=== PATIENT | male | born 1965 | race African-American/Black ===

== ENCOUNTER 2020-06-02 02:40 | Inpatient (IN) ==
[2020-06-02] MEDS ORDERED: GLUCAGON 1 MG VIAL IM PRN (05:59)
[2020-06-02] MEDS ORDERED: ONDANSETRON 4 MG/2 ML VIAL IV PRN (05:59)
[2020-06-02] MEDS ORDERED: DEXTROSE 50% 25 GM/50 ML VIAL IV PRN (05:59)
[2020-06-02] MEDS: ACETAMINOPHEN 325 MG TABLET PO PRN ×3 (06:19→21:01)
[2020-06-02] MEDS: PIPERACILLIN/TAZOBACTAM 3,375 MG in SODIUM CHLORIDE 0.9% 100 ML IV SCH ×3 (06:52→22:26)
[2020-06-02] MEDS: SODIUM CHLORIDE 0.9% 1,000 ML IV SCH ×3 (06:52→22:26)
[2020-06-02] MEDS: MORPHINE 4 MG/1 ML VIAL IV PRN ×3 (07:29→17:45)
[2020-06-02 07:58] LABS: Basophils % 0.4 % (0.0-0.8); Eosinophils % 0.1 % (0.00-10.9); Hematocrit 36.2 VOL% (42.0-52.0); Hemoglobin 12.4 GM/DL (14.0-18.0); Immature Granulocytes % 0.7 %; Immature Granulocytes Absolute 0.05 #; Lymphocytes # 1.1 10*3/uL (1.4-4.0); Lymphocytes % 15.7 % (21.2-54.2); Mean Corpuscular HGB Conc 34.3 GM/DL (32-36); Mean Corpuscular Volume 84.2 FL (87-102); Mean Platelet Volume 11.6 FL (9.6-12.0); Monocytes % 15.4 % (1.7-12.7); Neutrophils % 67.7 % (38.7-73.9); Platelet Count 156 T/CUMM (130-400); Red Cell Distribution Width 14.1 % (9.3-17.3); White Blood Count 6.8 T/CUMM (4-12)
[2020-06-02 08:28] LABS: Band Neutrophils 7 % (0-10); Eosinophils 2 % (0-10); Lymphocytes 11 % (20-55); Segmented Neutrophils 66 % (50-85); Total Cells Counted 100
[2020-06-02 08:29] LABS: Platelet Estimate Adequate; Polychromasia Slight; Target Cells Slight
[2020-06-02 08:38] LABS: Albumin 2.3 G/DL (3.4-5.0); Calcium 8.6 MG/DL (8.5-10.1); Osmolality,Calculated 256.2 MOS/KG (273-304); Potassium 3.5 MMOL/L (3.5-5.1); Total Protein 6.5 G/DL (6.4-8.2)
[2020-06-02 08:42] LABS: Bilirubin,Total 13.4 MG/DL (0.2-1.0)
[2020-06-02] MEDS ORDERED: NICOTINE 21 MG/24 HR PATCH TRANSDERM PRN (09:34)
[2020-06-02 10:34] LABS: INR 1.1; PT Patient Result 11.4 SECS (9.8-11.9); Partial Thromboplastin Time 26.2 SECS (23.9-33.8)
[2020-06-02 11:05] LABS: Hepatitis B Core IgM Quant < 0.05 Index; Hepatitis B Surface Ag Quant < 0.10 Index; Hepatitis B Surface Ag Result Non-Reactive (NonReactive); Hepatitis C Virus Ab Quant 0.07 Index; Hepatitis C Virus Ab Result Non-Reactive (NonReactive)
[2020-06-03] MEDS ORDERED: IBUPROFEN 600 MG TABLET PO PRN (00:26)
[2020-06-03] MEDS: SODIUM CHLORIDE 0.9% 1,000 ML IV SCH ×3 (04:31→18:08)
[2020-06-03] MEDS: PIPERACILLIN/TAZOBACTAM 3,375 MG in SODIUM CHLORIDE 0.9% 100 ML IV SCH ×3 (06:00→22:48)
[2020-06-03 06:16] LABS: Basophils % 0.3 % (0.0-0.8); Eosinophils % 0.2 % (0.00-10.9); Hematocrit 32.7 VOL% (42.0-52.0); Hemoglobin 11.5 GM/DL (14.0-18.0); Immature Granulocytes % 1.1 %; Immature Granulocytes Absolute 0.11 #; Lymphocytes # 1.7 10*3/uL (1.4-4.0); Lymphocytes % 16.3 % (21.2-54.2); Mean Corpuscular HGB Conc 35.2 GM/DL (32-36); Mean Platelet Volume 12.5 FL (9.6-12.0); Monocytes % 19.1 % (1.7-12.7); Platelet Count 160 T/CUMM (130-400); Red Blood Count 3.94 MC/CUMM (3.8-5.5); Red Cell Distribution Width 14.4 % (9.3-17.3); White Blood Count 10.1 T/CUMM (4-12)
[2020-06-03 06:43] LABS: Lymphocytes 18 % (20-55); Segmented Neutrophils 70 % (50-85); Total Cells Counted 100
[2020-06-03 06:44] LABS: Platelet Estimate Adequate; Target Cells Slight
[2020-06-03 06:51] LABS: Albumin 2.1 G/DL (3.4-5.0); Calcium 8.5 MG/DL (8.5-10.1); Osmolality,Calculated 265.4 MOS/KG (273-304); Potassium 3.6 MMOL/L (3.5-5.1); Total Protein 6.1 G/DL (6.4-8.2)
[2020-06-03 07:02] LABS: Bilirubin,Total 18.6 MG/DL (0.2-1.0)
[2020-06-03] MEDS: INSULIN REGULAR 100 UNIT/ML SUBCUT SCH ×4 (08:06→20:47)
[2020-06-03] MEDS: MORPHINE 4 MG/1 ML VIAL IV PRN ×2 (11:35→20:01)
[2020-06-03] MEDS: IBUPROFEN 400 MG TABLET PO PRN (22:49)
[2020-06-04] MEDS: SODIUM CHLORIDE 0.9% 1,000 ML IV SCH ×4 (00:34→23:35)
[2020-06-04] MEDS: ACETAMINOPHEN 325 MG TABLET PO PRN (00:59)
[2020-06-04] MEDS: MORPHINE 4 MG/1 ML VIAL IV PRN ×3 (03:43→18:27)
[2020-06-04 05:29] LABS: Basophils % 0.3 % (0.0-0.8); Eosinophils # 0.1 10*3/uL (0.0-0.87); Eosinophils % 0.9 % (0.00-10.9); Hematocrit 30.1 VOL% (42.0-52.0); Hemoglobin 10.5 GM/DL (14.0-18.0); Immature Granulocytes % 2.1 %; Immature Granulocytes Absolute 0.22 #; Lymphocytes # 2.1 10*3/uL (1.4-4.0); Lymphocytes % 19.9 % (21.2-54.2); Mean Corpuscular HGB Conc 34.9 GM/DL (32-36); Mean Corpuscular Volume 83.1 FL (87-102); Mean Platelet Volume 12.2 FL (9.6-12.0); Monocytes % 13.4 % (1.7-12.7); Neutrophils % 63.4 % (38.7-73.9); Platelet Count 199 T/CUMM (130-400); Red Blood Count 3.62 MC/CUMM (3.8-5.5); Red Cell Distribution Width 14.4 % (9.3-17.3); White Blood Count 10.5 T/CUMM (4-12)
[2020-06-04 05:49] LABS: Albumin 1.8 G/DL (3.4-5.0); Calcium 8.4 MG/DL (8.5-10.1); Osmolality,Calculated 265.2 MOS/KG (273-304); Potassium 3.2 MMOL/L (3.5-5.1); Total Protein 5.6 G/DL (6.4-8.2)
[2020-06-04 05:50] LABS: Bilirubin,Total 19.6 MG/DL (0.2-1.0)
[2020-06-04 05:51] LABS: INR 1.2; PT Patient Result 12.5 SECS (9.8-11.9); Partial Thromboplastin Time 29.8 SECS (23.9-33.8)
[2020-06-04 05:59] LABS: Band Neutrophils 2 % (0-10); Eosinophils 2 % (0-10); Hypochromasia 1+; Lymphocytes 18 % (20-55); Microcytosis 1+; Platelet Estimate Adequate; Segmented Neutrophils 66 % (50-85); Total Cells Counted 100
[2020-06-04] MEDS: PIPERACILLIN/TAZOBACTAM 3,375 MG in SODIUM CHLORIDE 0.9% 100 ML IV SCH ×2 (06:43→17:58)
[2020-06-04] MEDS: INSULIN REGULAR 100 UNIT/ML SUBCUT SCH ×4 (08:48→20:38)
[2020-06-04] MEDS: POTASSIUM CHLORIDE RIDER 10 MEQ in PREMIX 1 EACH IV PRN ×4 (09:12→22:45)
[2020-06-04] MEDS ORDERED: INDOMETHACIN SUPP 50 MG SUPP RECTAL ONE ×2 (10:51→14:00)
[2020-06-04] MEDS: LACTATED RINGERS 1,000 ML IV SCH ×2 (14:23→15:50)
[2020-06-04] MEDS ORDERED: fentaNYL 100 MCG/2 ML VIAL ONE (14:40)
[2020-06-04] MEDS ORDERED: ONDANSETRON 4 MG/2 ML VIAL ONE (14:45)
[2020-06-04] MEDS ORDERED: propofoL 200 MG/20 ML VIAL IV ONE (14:45)
[2020-06-04] MEDS ORDERED: DEXAMETHASONE 4 MG/1 ML VIAL ONE (14:45)
[2020-06-04] MEDS ORDERED: SUCCINYLCHOLINE 200 MG/10 ML VIAL ONE (14:45)
[2020-06-04] MEDS ORDERED: LIDOCAINE 2% 5 ML VIAL ONE (14:45)
[2020-06-04] MEDS ORDERED: ROCURONIUM 50 MG/5 ML VIAL IV ONE (15:21)
[2020-06-04] MEDS ORDERED: GLYCOPYRROLATE 0.4 MG/2 ML VIAL ONE ×2 (15:51)
[2020-06-04] MEDS ORDERED: NEOSTIGMINE 10 MG/10 ML VIAL ONE (15:51)
[2020-06-04] MEDS ORDERED: SEVOFLURANE 1 UNIT/15 MINUTE INH ONE (16:02)
[2020-06-05] MEDS: PIPERACILLIN/TAZOBACTAM 3,375 MG in SODIUM CHLORIDE 0.9% 100 ML IV SCH ×3 (01:06→17:01)
[2020-06-05] MEDS: MORPHINE 4 MG/1 ML VIAL IV PRN ×2 (05:14→18:33)
[2020-06-05] MEDS: SODIUM CHLORIDE 0.9% 1,000 ML IV SCH ×4 (06:04→23:10)
[2020-06-05 08:06] LABS: Basophils % 0.2 % (0.0-0.8); Hematocrit 29.8 VOL% (42.0-52.0); Hemoglobin 10.3 GM/DL (14.0-18.0); Immature Granulocytes % 1.6 %; Immature Granulocytes Absolute 0.21 #; Lymphocytes # 1.6 10*3/uL (1.4-4.0); Lymphocytes % 12.5 % (21.2-54.2); Mean Corpuscular HGB Conc 34.6 GM/DL (32-36); Mean Corpuscular Volume 84.4 FL (87-102); Mean Platelet Volume 11.9 FL (9.6-12.0); Monocytes % 3.9 % (1.7-12.7); Neutrophils % 81.8 % (38.7-73.9); Platelet Count 261 T/CUMM (130-400); Red Blood Count 3.53 MC/CUMM (3.8-5.5); Red Cell Distribution Width 14.8 % (9.3-17.3)
[2020-06-05 08:25] LABS: Albumin 1.7 G/DL (3.4-5.0); Calcium 7.9 MG/DL (8.5-10.1); Osmolality,Calculated 277.7 MOS/KG (273-304); Potassium 4.3 MMOL/L (3.5-5.1); Total Protein 5.9 G/DL (6.4-8.2)
[2020-06-05] MEDS: INSULIN REGULAR 100 UNIT/ML SUBCUT SCH ×4 (08:38→21:03)
[2020-06-05 09:04] LABS: Lymphocytes 15 % (20-55); Platelet Estimate Adequate; Segmented Neutrophils 79 % (50-85); Total Cells Counted 100
[2020-06-05 09:05] LABS: Microcytosis Slight
[2020-06-06] MEDS: MORPHINE 4 MG/1 ML VIAL IV PRN (01:20)
[2020-06-06] MEDS: PIPERACILLIN/TAZOBACTAM 3,375 MG in SODIUM CHLORIDE 0.9% 100 ML IV SCH ×2 (01:22→08:42)
[2020-06-06 05:42] LABS: Basophils % 0.4 % (0.0-0.8); Eosinophils # 0.1 10*3/uL (0.0-0.87); Eosinophils % 0.5 % (0.00-10.9); Hematocrit 27.1 VOL% (42.0-52.0); Hemoglobin 9.3 GM/DL (14.0-18.0); Immature Granulocytes % 1.4 %; Immature Granulocytes Absolute 0.16 #; Lymphocytes % 27.3 % (21.2-54.2); Mean Corpuscular HGB Conc 34.3 GM/DL (32-36); Mean Corpuscular Volume 84.4 FL (87-102); Mean Platelet Volume 11.4 FL (9.6-12.0); Monocytes % 4.5 % (1.7-12.7); Neutrophils % 65.9 % (38.7-73.9); Platelet Count 318 T/CUMM (130-400); Red Blood Count 3.21 MC/CUMM (3.8-5.5); Red Cell Distribution Width 14.8 % (9.3-17.3); White Blood Count 11.1 T/CUMM (4-12)
[2020-06-06 05:58] LABS: Albumin 1.7 G/DL (3.4-5.0); Bilirubin,Total 5.4 MG/DL (0.2-1.0); Calcium 8.1 MG/DL (8.5-10.1); Osmolality,Calculated 277.5 MOS/KG (273-304); Potassium 3.4 MMOL/L (3.5-5.1); Total Protein 5.4 G/DL (6.4-8.2)
[2020-06-06 06:08] LABS: Eosinophils 3 % (0-10); Lymphocytes 25 % (20-55); Platelet Estimate Adequate; Segmented Neutrophils 68 % (50-85); Total Cells Counted 100
[2020-06-06 06:09] LABS: Hypochromasia 1+; Microcytosis Slight
[2020-06-06] MEDS: INSULIN REGULAR 100 UNIT/ML SUBCUT SCH ×2 (07:17→12:14)
[2020-06-06] MEDS: SODIUM CHLORIDE 0.9% 1,000 ML IV SCH ×2 (07:25→14:09)
[2020-06-06] MEDS: IBUPROFEN 400 MG TABLET PO PRN (07:28)
[2020-06-06] MEDS ORDERED: GLUCAGON 1 MG VIAL IM PRN (08:26)
[2020-06-06] MEDS ORDERED: DEXTROSE 50% 25 GM/50 ML VIAL IV PRN (08:26)
[2020-06-06 11:47] VITALS: BP 107/69
== END 2020-06-06 14:48 | disposition home or self-care (01) | DRG 872 ==
LOC: N.5E 02:47 → SUATTDRO 05:47
PROVIDERS: ADMIT Internal Medicine; ATTEND Internal Medicine
PROC: ERCPWSP (ICD-10-PCS; 2020-06-04 12:05)